=== PATIENT | female | born 1990 | race Caucasian/White ===

== ENCOUNTER → 2016-11-29 | Outpatient (CLI) | payer BC ==
[2016-11-29 11:10] LABS: HIV12 AG/AB 4TH GEN W/REFLEX 0.1 (<1.0)
== END ==
LOC: MW.CHOBGYN 08:52
PROVIDERS: ATTEND Advanced Practice Midwife
DX: Z34.90 Encounter for supervision of normal pregnancy, unspecified, unspecified trimester (principal)
CPT/HCPCS: 36415; 80305; 81003; 82950; 85025; 86592; 86762; 86803; 86850; 86900; 86901; 87086; 87340; 87389

== ENCOUNTER 2016-12-16 15:07 | Emergency (ER) | payer BC ==
[2016-12-16] MEDS ORDERED: Sodium Chloride 0.9% 10 ML Syringe FLUSH PRN (15:32)
[2016-12-16] MEDS ORDERED: Sodium Chloride 0.9% 2.5 ML Syringe FLUSH PRN (15:32)
[2016-12-16] MEDS ORDERED: Sodium Chloride 0.9% 1,000 ML IV ONE (15:33)
--- NOTE | 2016-12-16 15:37 | EDM.PDOC ---
ED HPI GENERAL MEDICAL PROBLEM - General Chief Complaint: Neurological Problem Stated Complaint: WEAK,DIZZY Time Seen by Provider: 12/16/16 15:24 - History of Present Illness INITIAL COMMENTS - FREE TEXT/NARRATIVE: HISTORY AND PHYSICAL: History of present illness: The patient is a 26-year-old female who is 3 para 2 at approximately 17- 18 weeks who presents with a three-hour history of feeling weak lightheaded and feeling like she was going to pass out. Patient states she has a history of "hypoglycemia" but her blood sugar was fine but she has not been eating her usual meals. Patient states she usually likes to drink caffeine about "this baby doesn't like caffeine" so she's been trying to drink more water and non-caffeinated liquids. Patient says that she does not feel like she is spinning but more like she is drained and lightheaded and her whole body feels weak. These episodes only occur when she position changes from laying to standing or sitting to standing it does not occur when she's just sitting at her desk. She has no extremity pain or focal weakness no back pain no urinary symptoms no fevers no chills no nausea vomiting headache chest pain or shortness of breath. She doesn't feel like she has palpitations. The patient is followed in our clinic with the nurse vertical punch operator. Patient has no history of vertigo but says that her mother has it and she does not think it feels patient did not fall or completely pass out. Review of systems: As per history of present illness and below otherwise all systems reviewed and negative. Past medical history: As per history of present illness and as reviewed below otherwise noncontributory. Surgical history: As per history of present illness and as reviewed below otherwise noncontributory. Social history: No reported history of drug or alcohol abuse. Family history: As per history of present illness and as reviewed below otherwise noncontributory. Physical exam: General: Well-developed well-nourished female who is nontoxic and speaking clearly in the ED. HEENT: Atraumatic, normocephalic, pupils reactive, negative for conjunctival pallor or scleral icterus, mucous membranes moist, throat clear, neck supple, nontender, trachea midline. There is no cervical adenopathy no nuchal rigidity and no nystagmus on my exam Lungs: Clear to auscultation, breath sounds equal bilaterally, chest nontender. Heart: S1S2, regular, negative for clicks, rubs, or JVD. Abdomen: Soft, nondistended, nontender. I'm unable to palpate the uterus on abdominal exam and there is no focal tenderness rebound guarding and bowel sounds are normoactive Negative for masses or hepatosplenomegaly. Negative for costovertebral tenderness. Pelvis: Stable nontender. Genitourinary: Deferred. Rectal: Deferred. Extremities: Atraumatic, negative for cords or calf pain. Neurovascular unremarkable. No pedal edema or leg asymmetry Neuro: Awake, alert, oriented. Cranial nerves II through XII unremarkable. Cerebellum unremarkable. Motor and sensory unremarkable throughout. Exam nonfocal. Dorsi and plantar flexion is intact 5/5 inclusive of the great toe and there is no focal weakness or drift appreciated. Back: There are no midline step-offs or defects the thoracic or lumbar spine and no CVA tenderness or musculoskeletal tenderness Diagnostics: EKG CBC CMP heart tones orthostatic vitals UA urine culture if indicated Therapeutics: IV fluids FHT were variable from 120s to 130s It was noted that orthostatic vitals the patient's heart rate went from 79-100 from supine to standing without a blood pressure change but the patient did feel somewhat symptomatic. We will give IV fluids. 1602: This case was discussed with the patient's provider, Daria Keith the nurse vertical punch operator. I've advised her of my findings and my care plan and she states she can follow this patient in the clinic if the symptoms persist and need more evaluation. This phone conversation was also shared with the patient and at bedside. Impression: Lightheadedness and second trimester stable Definitive disposition and diagnosis as appropriate pending reevaluation and review of above. - Related Data Allergies Allergy/AdvReac Type Severity Reaction Status Date / Time No Known Allergies Allergy Verified 12/16/16 15:23 Home Meds: Home Meds . 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 ED EXAM, GENERAL - Physical Exam Exam: See Below (See dictation) Course - Vital Signs Last Recorded V/S: Last Vital Signs Temp 36.7 C 12/16/16 15:20 Pulse 74 12/16/16 15:20 Resp 18 12/16/16 15:20 BP 117/70 12/16/16 15:20 Pulse Ox 98 12/16/16 15:20 Orthostatic Blood Pressure [ 116/79 Standing] Orthostatic Blood Pressure [ 113/55 Sitting] Orthostatic Blood Pressure [ 118/63 Supine] - Orders/Labs/Meds Orders: Active Orders 24 hr Category Date Time Status Communication Order [RC] STAT Care 12/16/16 15:32 Active EKG Documentation Completion [RC] STAT Care 12/16/16 15:33 Active Orthostatic Vital Signs [RC] ASDIRECTED Care 12/16/16 15:32 Active Sodium Chloride 0.9% [Normal Saline] 1,000 ml Med 12/16/16 15:33 Active IV STAT Sodium Chloride 0.9% [Saline Flush] Med 12/16/16 15:32 Active 10 ml FLUSH ASDIRECTED PRN Sodium Chloride 0.9% [Saline Flush] Med 12/16/16 15:32 Active 2.5 ml FLUSH ASDIRECTED PRN Saline Lock Insert [OM.PC] Stat Oth 12/16/16 15:32 Ordered Medication Orders Sodium Chloride (Normal Saline) 1,000 mls @ 999 mls/hr IV STAT ONE Stop: 12/16/16 16:33 Last Admin: 12/16/16 15:45 Dose: 999 mls/hr Sodium Chloride (Saline Flush) 10 ml FLUSH ASDIRECTED PRN PRN Reason: Keep Vein Open Sodium Chloride (Saline Flush) 2.5 ml FLUSH ASDIRECTED PRN PRN Reason: Keep Vein Open Labs: Laboratory Tests 12/16/16 12/16/16 12/16/16 Range/Units 15:12 15:44 15:44 WBC 7.35 (4.0-11.0) K/uL RBC 4.17 L (4.30-5.90) M/uL Hgb 11.7 L (12.0-16.0) g/dL Hct 34.9 L (36.0-46.0) % MCV 83.7 (80.0-98.0) fL MCH 28.1 (27.0-32.0) pg MCHC 33.5 (31.0-37.0) g/dL RDW Std Deviation 42.5 (28.0-62.0) fl RDW Coeff of Yenni 14 (11.0-15.0) % Plt Count 213 (150-400) K/uL MPV 8.90 (7.40-12.00) fL Neut % (Auto) 74.2 (48.0-80.0) % Lymph % (Auto) 19.2 (16.0-40.0) % [place] % (Auto) 5.6 (0.0-15.0) % Eos % (Auto) 0.7 (0.0-7.0) % Baso % (Auto) 0.3 (0.0-1.5) % Neut # (Auto) 5.5 (1.4-5.7) K/uL Lymph # (Auto) 1.4 (0.6-2.4) K/uL [place] # (Auto) 0.4 (0.0-0.8) K/uL Eos # (Auto) 0.1 (0.0-0.7) K/uL Baso # (Auto) 0.0 (0.0-0.1) K/uL Nucleated RBC % 0.0 /100WBC Nucleated RBCs # 0 K/uL Sodium 137 (136-146) mmol/L Potassium 3.9 (3.5-5.1) mmol/L Chloride 107 (98-110) mmol/L Carbon Dioxide 22 (21-31) mmol/L BUN 6 (6.0-23.0) mg/dL Creatinine 0.8 (0.6-1.5) mg/dL Est Cr Clr Drug Dosing 101.51 mL/min Estimated GFR (MDRD) > 60.0 ml/min Glucose 96 (60-110) mg/dL Calcium 9.2 (8.8-10.8) mg/dL Total Bilirubin 0.3 (0.1-1.5) mg/dL AST 16 (5-40) IU/L ALT 12 (8-54) IU/L Alkaline Phosphatase 63 (40-150) Total Protein 6.3 (6.0-8.0) g/dL Albumin 3.6 (3.5-5.0) g/dL Globulin 2.7 (2.0-3.5) g/dL Albumin/Globulin Ratio 1.3 (1.3-2.8) Urine Color YELLOW Urine Appearance CLEAR Urine pH 6.0 (5.0-8.0) Ur Specific [place] <= 1.005 (1.001-1.035) Urine Protein NEGATIVE (NEGATIVE) mg/dL Urine Glucose (UA) NEGATIVE (NEGATIVE) mg/dL Urine Ketones NEGATIVE (NEGATIVE) mg/dL Urine Occult Blood NEGATIVE (NEGATIVE) Urine Nitrite NEGATIVE (NEGATIVE) Urine Bilirubin NEGATIVE (NEGATIVE) Urine Urobilinogen 0.2 (<2.0) EU/dL Ur Leukocyte Esterase NEGATIVE (NEGATIVE) Urine RBC 0-1 (0-2/HPF) Urine WBC 0-1 (0-5/HPF) Ur Epithelial Cells FEW (NONE-FEW) Urine Bacteria RARE (NEGATIVE) Meds: Medications Generic Name Dose Route Start Last Admin Trade Name Freq PRN Reason Stop Dose Admin Sodium Chloride 1,000 mls @ 999 mls/hr 12/16/16 15:33 12/16/16 15:45 Normal Saline IV 12/16/16 16:33 999 mls/hr STAT ONE Administration Sodium Chloride 10 ml 12/16/16 15:32 Saline Flush FLUSH ASDIRECTED PRN Keep Vein Open Sodium Chloride 2.5 ml 12/16/16 15:32 Saline Flush FLUSH ASDIRECTED PRN Keep Vein Open Departure - Departure Time of Disposition: 16:25 Disposition: Home, Self-Care 01 Condition: good Clinical Impression: Lightheadedness, Second trimester Forms: ED Department Discharge Additional Instructions: The following information is given to patients seen in the emergency department who are being discharged to home. This information is to outline your options for follow-up care. We provide all patients seen in our emergency department with a follow-up referral. The need for follow-up, as well as the timing and circumstances, are variable depending upon the specifics of your emergency department visit. If you don't have a primary care physician on staff, we will provide you with a referral. We always advise you to contact your personal physician following an emergency department visit to inform them of the circumstance of the visit and for follow-up with them and/or the need for any referrals to a consulting specialist. The emergency department will also refer you to a specialist when appropriate. This referral assures that you have the opportunity for followup care with a specialist. All of these measure are taken in an effort to provide you with optimal care, which includes your followup. Under all circumstances we always encourage you to contact your private physician who remains a resource for coordinating your care. When calling for followup care, please make the office aware that this follow-up is from your recent emergency room visit. If for any reason you are refused follow-up, please contact the [facility] emergency department at and ask to speak to the emergency department charge nurse. [facility] Primary care- Internal Medicine and [facility] [address] [place] [id number] Primary care-Women's Health [address] [place] [id number] Please keep note of any recurrence of today's symptoms and contact your nurse vertical punch operator for primary care physician for further evaluation and care. Please return to ER as needed and as discussed. Please try to push more hydrating fluids and ate more regular meals and small snacks. - My Orders Last 24 Hours: My Active Orders 12/16/16 15:32 Communication Order [RC] STAT Orthostatic Vital Signs [RC] ASDIRECTED Sodium Chloride 0.9% [Saline Flush] 10 ml FLUSH ASDIRECTED PRN Sodium Chloride 0.9% [Saline Flush] 2.5 ml FLUSH ASDIRECTED PRN Saline Lock Insert [OM.PC] Stat 12/16/16 15:33 EKG Documentation Completion [RC] STAT Sodium Chloride 0.9% [Normal Saline] 1,000 ml IV STAT - Assessment/Plan Last 24 Hours: My Active Orders 12/16/16 15:32 Communication Order [RC] STAT Orthostatic Vital Signs [RC] ASDIRECTED Sodium Chloride 0.9% [Saline Flush] 10 ml FLUSH ASDIRECTED PRN Sodium Chloride 0.9% [Saline Flush] 2.5 ml FLUSH ASDIRECTED PRN Saline Lock Insert [OM.PC] Stat 12/16/16 15:33 EKG Documentation Completion [RC] STAT Sodium Chloride 0.9% [Normal Saline] 1,000 ml IV STAT
[2016-12-16 16:15] LABS: CHLORIDE,CL 107 mmol/L (98-110); SODIUM,NA 137 mmol/L (136-146)
[2016-12-16 16:53] VITALS: BP 112/67
== END 2016-12-16 16:42 | disposition home or self-care (01) ==
LOC: MW.ED 15:07
DX: O99.89 Other specified diseases and conditions complicating pregnancy, childbirth and the puerperium (principal); R42 Dizziness and giddiness; Z3A.17 17 weeks gestation of pregnancy
CPT/HCPCS: 80053; 81001; 85025; 93005; 96360; 99284; J7040

== ENCOUNTER → 2016-12-29 | Outpatient (CLI) | payer BC | END | disposition home or self-care (01) | LOC: MW.CHOBGYN 09:25 | PROVIDERS: ATTEND Advanced Practice Midwife | DX: Z34.90 Encounter for supervision of normal pregnancy, unspecified, unspecified trimester (principal) | CPT/HCPCS: 36415; 82105; 82677; 84702; 86336; 87491; 87591 ==

== ENCOUNTER → 2017-01-12 | Outpatient (CLI) | payer BC ==
--- NOTE | 2017-01-13 10:07 | US ---
Examination: Greater than 14 weeks transabdominal ultrasound with color Doppler and M-mode evaluatio n. HISTORY: Supervision abnormal FINDINGS: LMP is 08/19/2016 EVALUATION: Anterior placenta with a breech lie and grade 1. Visually amniotic fluid is within normal limits. Three-vessel cord is seen. Ventricles are within normal limits. Nuchal fold thickness is 4 mm. Four chamber heart is noted. Heart rate is 150 beats per minute. BIOMETRY AND GESTATIONAL AGE: Biparietal diameter 4.6 cm. The abdominal circumference measures 14.4 cm. The femoral length is 3.2 cm with head circumference of 17.2 cm. Gestational age is 19 weeks and 5 days. The expected date of delivery is approximately 06/03/2017. Fetus weight is 313 grams. Overall the fetus is within the 6th percentile. Other detail anatomy summarized into PACs sheet after the images. No anatomical anomalies. IMPRESSION: 1. Single active IU with breech fetus. Anterior placenta with grade 1, no placenta previa. 2. No anomalies are seen. 2. Overall the fetus is within the 6th percentile.
== END ==
LOC: MW.US 12:40
PROVIDERS: ATTEND Advanced Practice Midwife
DX: Z34.92 Encounter for supervision of normal pregnancy, unspecified, second trimester (principal); Z3A.19 19 weeks gestation of pregnancy
CPT/HCPCS: 76805; 76805-26

== ENCOUNTER 2017-05-25 20:05 | Inpatient (IN) | payer BC ==
[2017-05-25] MEDS ORDERED: Water For Irrigation,Sterile 1,000 ML Container IRR PRN (20:25)
[2017-05-25] MEDS ORDERED: Carboprost Tromethamine 250 MCG/1 ML Amp IM PRN (20:25)
[2017-05-25] MEDS ORDERED: Sodium Chloride 0.9% 10 ML Syringe FLUSH PRN (20:25)
[2017-05-25] MEDS ORDERED: Butorphanol 1 MG/ML SDV IVPUSH PRN (20:25)
[2017-05-25] MEDS ORDERED: Nalbuphine 10 MG/1 ML Vial IVPUSH PRN (20:25)
[2017-05-25] MEDS ORDERED: Lidocaine 1% 50 ML MDV INJECT PRN (20:25)
[2017-05-25] MEDS ORDERED: Methylergonovine 0.2 MG/1 ML Amp IM PRN (20:25)
[2017-05-25] MEDS ORDERED: Sodium Chloride 0.9% 2.5 ML Syringe FLUSH PRN (20:25)
[2017-05-25] MEDS ORDERED: Misoprostol 200 MCG Tab PO PRN (20:25)
[2017-05-25] MEDS ORDERED: Lactated Ringers 1,000 ML IV SCH (20:30)
[2017-05-25] MEDS ORDERED: Oxytocin/Lactated Ringers 30 UNIT/500 ML BAG IV SCH (20:30)
[2017-05-26] MEDS ORDERED: Acetaminophen 500 MG Tab PO PRN (00:35)
[2017-05-26] MEDS ORDERED: Ibuprofen 400 MG Tab PO PRN (00:35)
[2017-05-26] MEDS ORDERED: Benzocaine/Menthol 20%-0.5% Spray 78 GM Cannister TOP PRN (00:35)
[2017-05-26] MEDS ORDERED: Witch Hazel Medicated Pads 40/Jar TOP PRN (00:35)
[2017-05-26] MEDS ORDERED: Docusate Sodium 100 MG Cap PO PRN (00:35)
[2017-05-26] MEDS ORDERED: Lanolin 100% Cream 7 GM Tube TOP PRN (00:35)
[2017-05-26] MEDS ORDERED: Bisacodyl 10 MG Supp RECTAL PRN (00:35)
[2017-05-26] MEDS ORDERED: oxyCODONE 5 MG Tab PO PRN (00:35)
--- NOTE | 2017-05-26 02:54 | OR ---
SURGEON: Jayy Adams MD DATE OF PROCEDURE: Angela is a 26-year-old. She is para 2-0-0-2. She is term. She is 38 plus 3 intrauterine . She was seen in our clinic primarily by the nurse indoor plant technician. She is admitted in active labor with spontaneous rupture of membranes. At the time of admission, she was 4-5 cm. The patient did not have epidural. She progressed rather rapidly into labor. She went to 6, 8, 9, and complete, and vaginal delivery in a rapid sequence. She was able to accomplish a normal spontaneous vaginal delivery of a male fetus and the placenta was delivered spontaneous, complete, and intact. The perineum was intact. There was no labial or perineal laceration. The score reported to be 8 and 9. The weight is not available at this time. The heart rate was category 1 through the entire process of labor. ESTIMATED BLOOD LOSS: 250-300 mL. COMPLICATIONS: There was no complication in the labor and . JULIANNA / SHAY /[id number]
[2017-05-26] MEDS: Ibuprofen 800 MG Tab PO PRN ×3 (08:14→22:49)
[2017-05-26] MEDS: Acetaminophen 500 MG Tab PO PRN ×2 (11:22→21:28)
[2017-05-27] MEDS: Ibuprofen 800 MG Tab PO PRN (05:12)
[2017-05-27] MEDS ORDERED: Measles, Mumps & Rubella Vaccine 0.5 ML SDV SUBCUT ONE (09:04)
--- NOTE | 2017-05-27 09:15 | PCM.PNPP ---
- General Info Date of Service: 05/27/17 Functional Status: Reports: Pain Controlled - Review of Systems General: Reports: No Symptoms HEENT: Reports: No Symptoms Pulmonary: Reports: No Symptoms Cardiovascular: Reports: No Symptoms Gastrointestinal: Reports: No Symptoms Genitourinary: Reports: No Symptoms Musculoskeletal: Reports: No Symptoms Skin: Reports: No Symptoms Neurological: Reports: No Symptoms Psychiatric: Reports: No Symptoms - General Info Date of Service: 05/27/17 - Patient Data Vital Signs - Most Recent: Last Vital Signs Temp 36.9 C 05/27/17 05:05 Pulse 71 05/27/17 05:05 Resp 16 05/27/17 05:05 BP 125/67 05/27/17 05:05 Pulse Ox 98 05/27/17 05:05 Weight - Most Recent: 108.862 kg Lab Results - Last 24 Hours: Laboratory Results - last 24 hr 05/27/17 Range/Units 05:20 Hgb 10.3 L (12.0-16.0) g/dL Hct 31.6 L (36.0-46.0) % Med Orders - Current: Current Medications Acetaminophen (Tylenol Extra Strength) 500 mg PO Q4H PRN PRN Reason: Pain Acetaminophen (Tylenol Extra Strength) 1,000 mg PO Q4H PRN PRN Reason: Pain Last Admin: 05/26/17 21:28 Dose: 1,000 mg Benzocaine/Menthol (Dermoplast Pain Relief 20%-0.5% [place]) 78 gm TOP ASDIRECTED PRN PRN Reason: Perineal Comfort Measure Bisacodyl (Dulcolax) 10 mg RECTAL .ONCE PRN PRN Reason: Constipation Butorphanol Tartrate (Stadol) 1 mg IVPUSH Q1H PRN PRN Reason: Pain Last Admin: 05/25/17 20:56 Dose: 1 mg Carboprost Tromethamine (Hemabate Ds) 250 mcg IM ASDIRECTED PRN PRN Reason: Post Hemorrhage Docusate Sodium (Colace) 100 mg PO BID PRN PRN Reason: Constipation Emollient Ointment (Lansinoh Hpa) 0 gm TOP ASDIRECTED PRN PRN Reason: Sore Nipples Lactated Ringer's (Ringers, Lactated) 1,000 mls @ 150 mls/hr IV ASDIRECTED SHILPI Last Admin: 05/25/17 20:41 Dose: 150 mls/hr Ibuprofen (Motrin) 400 mg PO Q4H PRN PRN Reason: Pain Ibuprofen (Motrin) 800 mg PO Q6H PRN PRN Reason: Pain Last Admin: 05/27/17 05:12 Dose: 800 mg Lidocaine HCl (Xylocaine 1%) 50 ml INJECT .ONCE PRN PRN Reason: Laceration repair Measles/Mumps/Rubella Vaccine Live (M-M-R Ii Vaccine) 0.5 ml SUBCUT .ONCE ONE Stop: 05/27/17 09:05 Methylergonovine Maleate (Methergine) 0.2 mg IM ASDIRECTED PRN PRN Reason: Post Hemorrhage Misoprostol (Cytotec) 200 mcg PO .ONCE PRN PRN Reason: Post Hemorrhage Nalbuphine HCl (Nubain) 10 mg IVPUSH Q1H PRN PRN Reason: Pain (severe 7-10) Oxycodone HCl (Oxycodone) 5 mg PO Q2H PRN PRN Reason: Pain Sodium Chloride (Saline Flush) 10 ml FLUSH ASDIRECTED PRN PRN Reason: Keep Vein Open Sodium Chloride (Saline Flush) 2.5 ml FLUSH ASDIRECTED PRN PRN Reason: Keep Vein Open Sterile Water (Sterile Water For Irrigation) 1,000 ml IRR ASDIRECTED PRN PRN Reason: delivery Witch Apryl (Tucks) 1 pad TOP ASDIRECTED PRN PRN Reason: comfort care Discontinued Medications Oxytocin/Lactated Ringer's (Pitocin In Lr 30 Units/500 Ml) 30 unit in 500 mls @ 999 mls/hr IV TITRATE SHILPI PRN Reason: 999 MUNITS/MIN Stop: 05/25/17 21:01 Last Admin: 05/26/17 00:22 Dose: 999 munits/min, 999 mls/hr - Interaction Disposition, : [place] in Room with Family Infant Interaction: Holding Feeding: Attempted ; Nursed Fair/Poor Support Person: - Recovery Exam Fundal Tone: Firm Fundal Level: 1 Fingerbreadths Below Umbilicus Fundal Placement: Midline Lochia Amount: Scant Lochia Color: Rubra/Red Perineum Description: Intact, Minimal Bruising/Swelling Episiotomy/Laceration: None Bladder Status: Voiding Urinary Elimination: Voided - Exam General: Alert, Oriented HEENT: Pupils Equal Neck: Supple Lungs: Clear to Auscultation, Normal Respiratory Effort Cardiovascular: Regular Rate, Regular Rhythm GI/Abdominal Exam: Normal Bowel Sounds, Soft, Non-Tender, No Organomegaly, No Distention, No Abnormal Bruit, No Mass, Pelvis Stable Extremities: Normal Inspection, Normal Range of Motion, Non-Tender, No Pedal Edema, Normal Capillary Refill Skin: Warm, Dry, Intact Wound/Incisions: Healing Well Neurological: No New Focal Deficit Psy/Mental Status: Alert, Normal Affect, Normal Mood - Problem List Review Problem List Initiated/Reviewed/Updated: Yes - My Orders Last 24 Hours: My Active Orders 05/26/17 Dinner Regular Diet [DIET] 05/27/17 09:04 Measles, Mumps & Rubella [M-M-R II Vaccine] 0.5 ml SUBCUT .ONCE ONE 05/27/17 09:09 Vaccines to be Administered [RC] PER UNIT ROUTINE - Assessment Assessment:: Status post normal spontaneous vaginal delivery day #1 patient is doing well. - Plan Plan:: Planning to send her home today a regular follow-up at 6 weeks
[2017-05-27 10:03] VITALS: BP 121/73
== END 2017-05-27 10:54 | disposition home or self-care (01) | DRG 560 ==
LOC: MW.OBCHECK 20:05 → MW.OB 20:09 → MW.OBCHECK 20:25 → MW.OB 20:25 → OBSVTOIN 05-26 00:20
PROVIDERS: ADMIT Obstetrics & Gynecology; ATTEND Obstetrics & Gynecology
PROC: 10E0XZZ Delivery of Products of Conception, External Approach (ICD-10-PCS; principal; 2017-05-26)
DX: O42.02 Full-term premature rupture of membranes, onset of labor within 24 hours of rupture (principal); Z3A.38 38 weeks gestation of pregnancy; Z37.0 Single live birth
CPT/HCPCS: 36415; 59025; 85014; 85018; 85027; 86850; 86900; 86901; 90471; 90707; A9270-GY; J0595; J7120

== ENCOUNTER 2022-05-16 18:00 | Emergency (ER) | payer OTHER ==
[2022-05-16] MEDS ORDERED: Sodium Chloride 0.9% 2.5 ML Syringe FLUSH PRN (18:02)
[2022-05-16] MEDS ORDERED: Sodium Chloride 0.9% 10 ML Syringe FLUSH PRN (18:02)
[2022-05-16 19:37] LABS: CARBON DIOXIDE,CO2 29.1 mmol/L (21.0-32.0); POTASSIUM,K 3.7 mmol/L (3.5-5.1)
[2022-05-16] MEDS ORDERED: Ketorolac 30 MG/ML SDV IVPUSH ONE (19:59)
[2022-05-16] MEDS ORDERED: Ondansetron 4 MG/2 ML SDV IVPUSH ONE (19:59)
[2022-05-16] MEDS ORDERED: Iopamidol 755 MG/ML 500 ML Multipack Bottle IVPUSH ONE (20:15)
[2022-05-16 23:22] VITALS: BP 122/85; PULSE 84
== END 2022-05-16 23:20 | disposition home or self-care (01) ==
LOC: MW.ED 18:00
DX: R10.84 Generalized abdominal pain (principal)
CPT/HCPCS: 36415; 74177; 80053; 81003; 81025; 85025; 96374; 96375; 99284; J1885; J2405; J3490; Q9967

== ENCOUNTER 2022-09-05 01:27 | Emergency (ER) | payer OTHER ==
[2022-09-05] MEDS ORDERED: Ondansetron 4 MG/2 ML SDV IVPUSH ONE (02:13)
[2022-09-05] MEDS ORDERED: Morphine 4 MG/ML Syringe IVPUSH ONE (02:13)
[2022-09-05] MEDS ORDERED: Sodium Chloride 0.9% 1,000 ML IV ONE (02:21)
[2022-09-05 02:32] LABS: CARBON DIOXIDE,CO2 27.3 mmol/L (21.0-32.0); POTASSIUM,K 3.6 mmol/L (3.5-5.1)
[2022-09-05 03:30] VITALS: BP 118/76; PULSE 66
== END 2022-09-05 03:29 | disposition home or self-care (01) ==
LOC: MW.ED 01:27
DX: R10.84 Generalized abdominal pain (principal); J45.909 Unspecified asthma, uncomplicated
CPT/HCPCS: 36415; 80053; 81003; 83690; 83735; 84703; 85025; 96361; 96374; 96375; 99284; J2270; J2405; J7030

== ENCOUNTER 2023-05-03 15:49 | Emergency (ER) | payer OTHER ==
[2023-05-03 18:27] VITALS: BP 121/73; PULSE 103
== END 2023-05-03 18:27 | disposition home or self-care (01) ==
LOC: MW.ED 15:49
DX: O9A.212 Injury, poisoning and certain other consequences of external causes complicating pregnancy, second trimester (principal); M25.522 Pain in left elbow; Z3A.19 19 weeks gestation of pregnancy; V49.40XA Driver injured in collision with unspecified motor vehicles in traffic accident, initial encounter
CPT/HCPCS: 73080-26-LT; 73080-LT; 99283; 99284

== ENCOUNTER 2023-09-19 00:02 | Inpatient (IN) | payer BC ==
[2023-09-19] MEDS ORDERED: Carboprost Tromethamine 250 MCG/1 mL Vial IM PRN (01:29)
[2023-09-19] MEDS ORDERED: Terbutaline 1 MG/ML SDV SUBCUT PRN (01:29)
[2023-09-19] MEDS ORDERED: Sodium Chloride 0.9% 20 ML SDV IV PRN (01:29)
[2023-09-19] MEDS ORDERED: Nalbuphine 10 MG/0.5 ML Syringe IVPUSH PRN (01:29)
[2023-09-19] MEDS ORDERED: Methylergonovine 0.2 MG/1 ML Amp IM PRN (01:29)
[2023-09-19] MEDS ORDERED: Sodium Chloride 0.9% 2.5 ML Syringe FLUSH PRN (01:29)
[2023-09-19] MEDS ORDERED: Sodium Chloride 0.9% 10 ML Syringe FLUSH PRN (01:29)
[2023-09-19] MEDS ORDERED: Misoprostol 25 MCG (1/4 of 100 MCG) Tab VAG PRN (01:29)
[2023-09-19] MEDS ORDERED: Misoprostol 200 MCG Tab PO PRN (01:29)
[2023-09-19] MEDS ORDERED: Ondansetron 4 MG/2 ML SDV IVPUSH PRN (01:29)
[2023-09-19] MEDS ORDERED: Water For Irrigation,Sterile 1,000 ML Container IRR PRN (01:29)
[2023-09-19] MEDS ORDERED: Lidocaine 1% 50 ML MDV INJECT PRN (01:29)
[2023-09-19] MEDS ORDERED: Tranexamic Acid IN NACL,ISO-OS 1,000 MG in Premix Bag 1 BAG IV PRN ×2 (01:29)
[2023-09-19] MEDS ORDERED: Oxytocin/0.9 % Sodium Chloride 30 UNIT/500 ML BAG IV SCH ×2 (01:30→11:45)
[2023-09-19] MEDS ORDERED: Lactated Ringers 1,000 ML IV SCH (01:30)
[2023-09-19 01:47] LABS: HEMATOCRIT 33.8 % (37.0-47.0); MEAN CORPUSCULAR HEMOGLOBIN 26.2 pg (28.0-32.0); MEAN CORPUSCULAR HGB CONC 32.5 g/dL (32.0-36.0); MEAN CORPUSCULAR VOLUME 80.5 fL (83.0-99.0); MEAN PLATELET VOLUME 9.7 fL (9.4-12.3); PLATELET COUNT,PLT 223 K/uL (150-400); WHITE BLOOD CELL COUNT,WBC 9.43 K/uL (3.9-11.3)
[2023-09-19] MEDS: Misoprostol 25 MCG (1/4 of 100 MCG) Tab PO PRN ×2 (02:01→06:09)
[2023-09-19] MEDS: Misoprostol 25 MCG (1/4 of 100 MCG) Tab VAG PRN ×2 (02:01→06:10)
[2023-09-19] MEDS ORDERED: Lanolin 100% Cream 7 GM Tube TOP PRN (18:19)
[2023-09-19] MEDS ORDERED: Witch Hazel Medicated Pads 40/Jar TOP PRN (18:19)
[2023-09-19] MEDS ORDERED: Docusate Sodium 100 MG Cap PO PRN (18:19)
[2023-09-19] MEDS ORDERED: Benzocaine/Menthol 20%-0.5% Spray 78 GM Cannister TOP PRN (18:19)
[2023-09-19] MEDS ORDERED: Acetaminophen 500 MG Tab PO PRN (18:19)
[2023-09-19] MEDS: Ibuprofen 800 MG Tab PO PRN (21:11)
[2023-09-20 06:13] LABS: HEMATOCRIT 31.1 % (37.0-47.0); HEMOGLOBIN 10.2 g/dL (12.0-16.0)
[2023-09-20] MEDS: Ibuprofen 800 MG Tab PO PRN (08:14)
[2023-09-20 16:01] VITALS: BP 120/73; PULSE 73
== END 2023-09-20 17:24 | disposition home or self-care (01) | DRG 560 ==
LOC: MW.OB 00:02 → OBSVTOIN 13:59 → MW.OB 13:59
PROVIDERS: ADMIT Obstetrics & Gynecology Obstetrics; ATTEND Obstetrics & Gynecology Obstetrics
PROC: 10E0XZZ Delivery of Products of Conception, External Approach (ICD-10-PCS; principal; 2023-09-19)
DX: O80 Encounter for full-term uncomplicated delivery (principal); Z37.0 Single live birth; Z3A.39 39 weeks gestation of pregnancy
CPT/HCPCS: 36415; 59025; 59409; 85014; 85018; 85027; 86592; 86850; 86900; 86901; A9270-GY; J2300; J2590; J7120

== ENCOUNTER 2025-04-12 13:41 | Emergency (ER) | payer BC ==
[2025-04-12 14:05] VITALS: BP 167/96
[2025-04-12 14:11] LABS: BASOPHILS ABSOLUTE AUTO 0.06 K/uL (0.00-0.20); BASOPHILS PERCENT AUTO 0.8 % (0.0-1.0); EOSINOPHILS ABSOLUTE AUTO 0.10 K/uL (0.00-0.45); EOSINOPHILS PERCENT AUTO 1.3 % (0.0-6.0); IMMATURE GRAN ABSOLUTE AUTO 0.02 K/uL (0.00-0.05); IMMATURE GRAN PERCENT AUTO 0.3 % (0.0-0.4); LYMPHOCYTES ABSOLUTE AUTO 1.97 K/uL (1.00-4.80); LYMPHOCYTES PERCENT AUTO 24.6 % (24.0-44.0); MEAN PLATELET VOLUME 8.7 fL (9.4-12.3); MONOCYTES ABSOLUTE AUTO 0.35 K/uL (0.00-0.80); MONOCYTES PERCENT AUTO 4.4 % (0.0-8.0); NEUTROPHILS ABSOLUTE AUTO 5.50 K/uL (1.80-7.70); NEUTROPHILS PERCENT AUTO 68.6 % (41.0-71.0); NRBC ABSOLUTE 0.00 K/uL (0.00-0.02); NRBC PERCENT 0.0 /100WBC (0.0-0.2); PLATELET COUNT,PLT 222 K/uL (150-400); RED BLOOD CELL COUNT 4.66 M/uL (4.10-5.30); WHITE BLOOD CELL COUNT,WBC 8.00 K/uL (3.9-11.3)
[2025-04-12 14:48] LABS: APPEARANCE,URINE CLEAR; GLUCOSE,URINE NEGATIVE (NEGATIVE); OCCULT BLOOD,URINE LARGE (NEGATIVE)
[2025-04-12 14:57] LABS: EPITHELIAL CELLS,URINE FEW (NONE-FEW)
[2025-04-12 15:10] LABS: A/G RATIO 0.9 (0.9-1.6); ALANINE AMINOTRANSFERASE,ALT 19.0 IU/L (14-63); ASPARTATE AMNIOTRANSFERASE,AST 14.0 IU/L (15-37); BILIRUBIN TOTAL 0.3 mg/dL (0.2-1.0); BLOOD UREA NITROGEN,BUN 10.0 mg/dL (7.0-18.0); CARBON DIOXIDE,CO2 23.2 mmol/L (21.0-32.0); CHLORIDE,CL 101.0 mmol/L (98-107); CREATININE 0.8 mg/dL (0.6-1.0); EST CRCL DRUG DOSING (CG) 98.18 mL/min; GLUCOSE RANDOM 92.0 mg/dL (74-106); POTASSIUM,K 3.9 mmol/L (3.5-5.1); PROTEIN TOTAL,TP 7.3 g/dL (6.4-8.2); SODIUM,NA 134.0 mmol/L (136-145)
[2025-04-12 15:13] LABS: ESTIMATED GFR 100.0 mL/min (>60); HCG QUANTITATIVE 20223.0 mIU/mL
[2025-04-12 16:07] VITALS: PULSE 82
== END 2025-04-12 16:07 | disposition home or self-care (01) ==
LOC: MW.ED 13:41
DX: O20.9 Hemorrhage in early pregnancy, unspecified (principal); Z3A.14 14 weeks gestation of pregnancy
CPT/HCPCS: 36415; 76815; 76815-26; 80053; 81001; 84702; 85025; 86900; 86901; 99283; 99284